=== PATIENT | female | born 1955 | race Caucasian/White ===

== ENCOUNTER → 2016-11-05 | Outpatient (CLI) | payer OTHER | LOC: FIMAGING 09:07 | DX: Z12.31 Encounter for screening mammogram for malignant neoplasm of breast (principal) | CPT/HCPCS: G0202 ==

== ENCOUNTER 2017-06-08 18:44 | Emergency (ER) | payer OTHER ==
--- NOTE | 2017-06-08 19:14 | EDPHY ---
H & P Stated Complaint: llq abd pain/constipation Time Seen by Provider: 06/08/17 19:14 HPI/ROS: CHIEF COMPLAINT: Left lower quadrant pain, constipation HISTORY OF PRESENT ILLNESS: The patient has a history of developmental delay. She presents to the ED with constipation that began on Wednesday. She has tried [id number] suppositories and Senokot without improvement. The patient has no prior history of significant constipation. She has had a colonoscopy which demonstrated no evidence of acute disease. The patient denies any fever, cough or congestion. The patient reports her pain is moderate to severe in nature. She denies dysuria. She denies additional complaints. REVIEW OF SYSTEMS: A comprehensive 10 point review of systems is otherwise negative aside from elements mentioned in the history of present illness. Source: Patient - Personal History Current Tetanus/Diphtheria Vaccine: Yes - Medical/Surgical History Hx Asthma: No Hx Chronic Respiratory Disease: No Hx Diabetes: No Hx Cardiac Disease: No Hx Renal Disease: No Hx Cirrhosis: No Hx Alcoholism: No Hx HIV/AIDS: No Hx Splenectomy or Spleen Trauma: No Other PMH: htn - Social History Smoking Status: Former smoker - Physical Exam Exam: General Appearance: Obese female, no acute distress Eyes: Pupils equal and round no pallor or injection ENT, Mouth: Mucous membranes moist Respiratory: There are no retractions, lungs are clear to auscultation Cardiovascular: Regular rate and rhythm Gastrointestinal: Minimal tenderness to palpation noted in left lower quadrant , no peritoneal signs Rectal: Empty vault noted on digital rectal exam Neurological: A&O, normal motor function, normal sensory exam, normal cranial nerves Skin: Warm and dry, no rashes Musculoskeletal: Neck is supple nontender Extremities: symmetrical, full range of motion Constitutional: Initial Vital Signs Temperature (C) 36.8 C 06/08/17 18:56 Heart Rate 94 06/08/17 18:56 Respiratory Rate 18 06/08/17 18:56 Blood Pressure 162/89 H 06/08/17 18:56 O2 Sat (%) 93 06/08/17 18:56 O2 Delivery Mode Room Air Allergies/Adverse Reactions: Penicillins Allergy (Verified 10/27/10 16:00) Unknown Home Medications: Medication Instructions Recorded Benafiber 06/08/17 Dulcolax 06/08/17 Hydrochlorothiazide 06/08/17 Levothyroxine 11/14/17 Ondansetron Odt [Zofran Odt] 4 mg PO Q4PRN PRN #20 tab 06/08/17 SIMVASTATIN 06/08/17 Senna 06/08/17 Tamsulosin HCl [Flomax] 0.4 mg PO DAILY PRN #5 cap 06/08/17 oxyCODONE/APAP 5/325 [Percocet 1 - 2 tab PO Q6-8PRN PRN #20 tab 06/08/17 5/325 (RX)] Medical Decision Making - Diagnostics Imaging Results: Imaging Impressions Abdomen X-Ray 06/08/17 19:33 Impression: Might this patient have cholecystitis? ED Course/Re-evaluation: The patient presents to the ED with subjective constipation left-sided abdominal pain for the past several days. The patient is afebrile. The patient has no evidence of obvious stool noted on her rectal exam. The patient' s KUB was unrevealing. The patient was noted to have leukocytosis. The patient is a bit of a difficult historian secondary to her cognitive dysfunction. The patient was taken for a CT scan of the abdomen pelvis for further characterization of her abdominal pain. Differential Diagnosis: Differential diagnosis considered includes constipation, obstipation, diverticulitis, obstruction, appendicitis - Data Points Laboratory Results: Laboratory Results 06/08/17 19:26 06/08/17 19:26 06/08/17 06/08/17 06/08/17 19:48 19:26 19:26 WBC 15.36 10^3/uL H 10^3/uL (3.80-9.50) RBC 5.33 10^6/uL 10^6/uL (4.18-5.33) Hgb 15.7 g/dL g/dL (12.6-16.3) POC Hgb 16.7 gm/dL H gm/dL (12.6-16.3) Hct 45.1 % % (38.0-47.0) POC Hct 49 % H % (38-47) MCV 84.6 fL fL (81.5-99.8) MCH 29.5 pg pg (27.9-34.1) MCHC 34.8 g/dL g/dL (32.4-36.7) RDW 13.1 % % (11.5-15.2) Plt Count 254 10^3/uL 10^3/uL (150-400) MPV 9.8 fL fL (8.7-11.7) Neut % (Auto) 77.7 % H % (39.3-74.2) Lymph % (Auto) 13.3 % L % (15.0-45.0) [place] % (Auto) 8.3 % % (4.5-13.0) Eos % (Auto) 0.1 % L % (0.6-7.6) Baso % (Auto) 0.3 % % (0.3-1.7) Nucleat RBC Rel Count 0.0 % % (0.0-0.2) Absolute Neuts (auto) 11.94 10^3/uL H 10^3/uL (1.70-6.50) Absolute Lymphs (auto) 2.04 10^3/uL 10^3/uL (1.00-3.00) Absolute Monos (auto) 1.28 10^3/uL H 10^3/uL (0.30-0.80) Absolute Eos (auto) 0.01 10^3/uL L 10^3/uL (0.03-0.40) Absolute Basos (auto) 0.04 10^3/uL 10^3/uL (0.02-0.10) Absolute Nucleated RBC 0.00 10^3/uL 10^3/uL (0-0.01) Immature Gran % 0.3 % % (0.0-1.1) Immature Gran # 0.05 10^3/uL 10^3/uL (0.00-0.10) POC Sodium 139 mEq/L mEq/L (134-144) Sodium 138 mEq/L mEq/L (134-144) POC Potassium 3.4 mEq/L mEq/L (3.3-5.0) Potassium 3.6 mEq/L mEq/L (3.5-5.2) POC Chloride 100 mEq/L mEq/L (97-110) Chloride 99 mEq/L mEq/L (97-110) Carbon Dioxide 25 mEq/l mEq/l (22-31) Anion Gap 14 mEq/L mEq/L (8-16) POC BUN 19 mg/dL mg/dL (7-23) BUN 18 mg/dL mg/dL (7-23) Creatinine 1.1 mg/dL H mg/dL (0.6-1.0) POC Creatinine 1.2 mg/dL H mg/dL (0.6-1.0) Estimated GFR 50 Glucose 109 mg/dL H mg/dL (70-100) POC Glucose 112 mg/dL H mg/dL (70-100) Calcium 10.0 mg/dL mg/dL (8.5-10.4) Medications Given: Discontinued Medications Fentanyl (Sublimaze) 100 mcg IVP EDNOW ONE Stop: 06/08/17 19:34 Last Admin: 06/08/17 19:47 Dose: 100 mcg Sodium Chloride (Ns) 1,000 mls @ 0 mls/hr IV EDNOW ONE; Wide Open PRN Reason: Protocol Stop: 06/08/17 19:34 Last Admin: 06/08/17 19:47 Dose: 1,000 mls Point of Care Test Results: 06/08/17 19:48 POC Sodium 139 POC Potassium 3.4 POC Chloride 100 POC BUN 19 POC Creatinine 1.2 H POC Glucose 112 H Departure - Departure Disposition: Home, Routine, Self-Care Clinical Impression: Renal colic on left side Condition: Good Instructions: Kidney Stones (ED), Renal Colic (ED) Additional Instructions: 1. Take Ibuprofen or Motrin 600 mg by mouth three times a day. 2. Percocet as needed for severe pain 3. Flomax as directed 4. Zofran as needed for nausea 5. Strain urine as directed 6. Return to the Emergency Department for intractable pain, fever or vomiting. 7. Followup with the urologist you have been referred to for unimproved symptoms. Referrals: Ana Bucio MD [Medical Doctor] - As per Instructions
[2017-06-08] MEDS ORDERED: NS 1,000 ML IV ONE (19:33)
[2017-06-08] MEDS ORDERED: fentaNYL 100 MCG/2 ML INJ IVP ONE (19:33)
[2017-06-08 19:39] LABS: % IMMATURE GRANULYOCYTES 0.3 % (0.0-1.1); ABSOLUTE IMMATURE GRANULOCYTES 0.05 10^3/uL (0.00-0.10); ADD DIFF? NO; ADD MORPH? NO; ADD SCAN? NO; ATYPICAL LYMPHOCYTE FLAG 0 (0-99); FRAGMENT RBC FLAG 0 (0-99); HEMATOCRIT 45.1 % (38.0-47.0); HEMOGLOBIN 15.7 g/dL (12.6-16.3); LEFT SHIFT FLG 0 (0-99); LIPEMIA HEMOLYSIS FLAG 90 (0-99); MEAN CELL HEMOGLOBIN 29.5 pg (27.9-34.1); MEAN CELL HEMOGLOBIN CONCENTR. 34.8 g/dL (32.4-36.7); MEAN CELL VOLUME 84.6 fL (81.5-99.8); MEAN PLATELET VOLUME 9.8 fL (8.7-11.7); PLATELET CLUMPS FLAG 10 (0-99); PLATELET COUNT 254 10^3/uL (150-400); RED BLOOD CELL COUNT 5.33 10^6/uL (4.18-5.33); RED CELL DISTRIBUTION WIDTH 13.1 % (11.5-15.2)
[2017-06-08 19:46] LABS: ANION GAP 14 mEq/L (8-16); CARBON DIOXIDE 25 mEq/l (22-31); CHLORIDE 99 mEq/L (97-110); CREATININE 1.1 mg/dL (0.6-1.0); GLOMERULAR FILTRATION RATE 50; GLUCOSE 109 mg/dL (70-100); POTASSIUM 3.6 mEq/L (3.5-5.2); SODIUM 138 mEq/L (134-144)
[2017-06-08] MEDS ORDERED: IOPAMIDOL (ISOVUE-300) 100 ML BTL ONE (20:11)
[2017-06-08] MEDS ORDERED: KETOROLAC 30 MG/1 ML SDV IVP ONE (20:52)
[2017-06-08] MEDS ORDERED: TAMSULOSIN HCL 0.4 MG CAP PO ONE (20:52)
[2017-06-08] MEDS ORDERED: OXYCODONE/APAP 5/325MG PREPACK#4 BTL TAKEHOME ONE (20:59)
[2017-06-08] MEDS ORDERED: ONDANSETRON 4MG PREPACK#2 BTL TAKEHOME ONE (20:59)
[2017-06-08 21:34] LABS: COLOR YELLOW; LEUKOCYTE ESTERASE,URINE NEGATIVE (NEGATIVE); NITRITE,URINE NEGATIVE (NEGATIVE)
[2017-06-08 21:57] VITALS: BP 113/67; PULSE 80; RESP 16; TEMP 98.1; O2SAT 94
== END 2017-06-08 21:57 | disposition home or self-care (01) ==
DX: N23 Unspecified renal colic (principal); I10 Essential (primary) hypertension; E86.9 Volume depletion, unspecified; Z87.891 Personal history of nicotine dependence
CPT/HCPCS: 74000; 74177; 96374; 96375; 99285; J1885; J3010; Q9967; 82947-QW

== ENCOUNTER → 2017-06-29 | Outpatient (CLI) | payer OTHER | LOC: FIMAGING 09:14 | PROVIDERS: ATTEND Specialist | DX: K66.8 Other specified disorders of peritoneum (principal) ==

== ENCOUNTER → 2017-11-08 | Outpatient (CLI) | payer OTHER | LOC: FIMAGING 08:39 | PROVIDERS: ATTEND Physician Assistant | DX: Z12.31 Encounter for screening mammogram for malignant neoplasm of breast (principal) ==

== ENCOUNTER → 2018-11-09 | Outpatient (CLI) | payer OTHER | LOC: FIMAGING 09:00 | PROVIDERS: ATTEND Physician Assistant | DX: Z12.31 Encounter for screening mammogram for malignant neoplasm of breast (principal) ==